=== PATIENT | male | born 1980 | race Two or more races ===

== ENCOUNTER 2018-12-05 10:48 | Emergency (ER) | payer SELFPAY ==
[~2018-12-05] VITALS: Ht 170.2 cm; Wt 104.3 kg
--- NOTE | 2018-12-05 10:53 | NUR ---
JOE,INJURED HIS BACK 10 DAYS AGO AT WORK, WENT TO URGENT CARE, Dx WITH L2 FRACTURE, PAIN GOT WORST TODAY 10/10 PS. TO ER BED 2, HOOKED TO MONITOR, CHANGED TO GOWN, PROVIDED W WARM BLANKET, AWAITING MD SHERMAN.
--- NOTE | 2018-12-05 11:02 | NUR ---
DR WILKINS AT BEDSIDE
[2018-12-05] MEDS ORDERED: HYDROCODONE/APAP 5/325MG 1 EACH TABLET ONE (11:16)
[2018-12-05] MEDS ORDERED: METHOCARBAMOL (500MG) 500 MG TABLET ONE (11:16)
[2018-12-05] MEDS ORDERED: IBUPROFEN 600 MG TABLET PO ONE ×2 (11:16→11:30)
--- NOTE | 2018-12-05 11:22 | NUR ---
WHEELED OUT VIA [facility] FOR CT SCAN.
[2018-12-05] MEDS ORDERED: METHOCARBAMOL (500MG) 500 MG TABLET PO ONE (11:30)
[2018-12-05] MEDS ORDERED: HYDROCODONE/APAP 5/325MG 1 EACH TABLET PO ONE (11:30)
--- NOTE | 2018-12-05 12:32 | NUR ---
Patient discharged to home in stable condition. Written and verbal after care instructions given. Patient verbalizes understanding of instruction.
[2018-12-05 12:39] VITALS: BP 142/90
== END 2018-12-05 12:39 | disposition home or self-care (01) ==
LOC: ER 10:50
DX: S39.012A Strain of muscle, fascia and tendon of lower back, initial encounter (principal); J45.909 Unspecified asthma, uncomplicated; X50.0XXA Overexertion from strenuous movement or load, initial encounter; Y93.89 Activity, other specified; Y92.89 Other specified places as the place of occurrence of the external cause; Y99.0 Civilian activity done for income or pay
CPT/HCPCS: 72131-TC